=== PATIENT | female | born 1950 | race Caucasian/White ===

== ENCOUNTER 2019-06-22 07:31 | Day surgery (SDC) | payer MEDICARE, BC ==
[~2019-06-22 07:31] MED LIST: Cyanocobalamin (Vitamin B12) 1,000 MCG/ML SDV IM ONE; Dexamethasone 4 MG/ML SDV ONE; Glycopyrrolate 0.2 MG/ML 2 ML SDV IVPUSH ONE; Lactated Ringers 1,000 ML IV ONE; MVI, Adult with Vitamin K 10 ML, Thiamine 200 MG, Chromium/Copper/Mang/Selen/Zn 1 ML in... IV ONE; Midazolam 1 MG/ML 2 ML SDV ONE; Ondansetron 4 MG/2 ML SDV ONE; Propofol 200 MG/20 ML SDV ONE; fentaNYL 100 MCG/2 ML SDV ONE
[2019-06-22] MEDS ORDERED: Propofol 200 MG/20 ML SDV ONE (08:25)
[2019-06-22] MEDS ORDERED: Midazolam 1 MG/ML 2 ML SDV ONE (08:25)
[2019-06-22] MEDS ORDERED: fentaNYL 100 MCG/2 ML SDV ONE (08:25)
[2019-06-22] MEDS ORDERED: Glycopyrrolate 0.2 MG/ML 2 ML SDV IVPUSH ONE (09:00)
[2019-06-22] MEDS ORDERED: Cyanocobalamin (Vitamin B12) 1,000 MCG/ML SDV IM ONE (09:00)
--- NOTE | 2019-07-01 08:01 | OR ---
DATE OF PROCEDURE: 06/22/2019 SURGEON: Yonis Alatorre MD PREOPERATIVE DIAGNOSES: Worsening gastroesophageal reflux symptoms associated with probable slipped laparoscopic adjustable gastric band. POSTOPERATIVE DIAGNOSES: Slipped (10 cm) laparoscopic adjustable gastric band with marked dilation of proximal esophagus above the band and severe esophageal inflammation. OPERATIVE PROCEDURE: Upper GI endoscopy. ANESTHESIA: IV sedation. INDICATION FOR PROCEDURE: This is a 68-year-old status post laparoscopic adjustable gastric band placed in [facility] in [place] in 2006. Over the past few months, she has had progressively worsening problems with severe reflux symptoms, often bringing up undigested food. The patient presents at this time for evaluation of her band endoscopically. Potential risks of the procedure including bleeding and perforation as well as aspiration of esophageal contents were reviewed, and the patient wishes to proceed. DETAILS OF PROCEDURE: The patient was taken to the operating room and placed in a left lateral decubitus position. IV sedation was administered, after which the upper GI endoscope was passed orally through the length of the esophagus and into the stomach with retroflexion view of the fundus, thereafter through the pyloric channel and into the proximal duodenum. Findings included marked dilation of the mid and distal esophagus with retained bilious as well as some old food and fluid within the distal esophagus. This was evacuated initially. The patient was noted to have a quite striking generalized inflammation of the distal esophagus. The imprint of the band was then identified and measured, and noted to be around 10 cm, indicating a significant amount of slippage of the band upward through the band. The outlet of this, however, was widely patent. The esophageal findings would be more in keeping with the picture of esophageal dysmotility one sees frequently with band patients on long-term followup. Within the more distal stomach, retroflexion revealed no evidence of erosion of the band, and remainder of the gastric and duodenal exams were unremarkable. At this point, the scope was then withdrawn and the procedure then concluded. Additional fluid will be removed from the band. We will see the patient back next week to discuss long-term treatment options. She probably will be best suited with removal of the band and conversion to Olesya-en-[id number] gastric bypass, given the esophageal findings, versus repositioning of the band. The latter would actually result in continued problems with esophageal dysmotility and for esophageal emptying. This will all be reviewed with the patient next week and a plan established at that point. Yonis Alatorre MD /[id number]
== END 2019-06-22 11:40 | disposition home or self-care (01) ==
LOC: JP.SDS 07:31
PROVIDERS: ATTEND Surgery
DX: K95.09 Other complications of gastric band procedure (principal); K22.8 Other specified diseases of esophagus; K20.9 Esophagitis, unspecified; I10 Essential (primary) hypertension; K21.9 Gastro-esophageal reflux disease without esophagitis; E87.6 Hypokalemia; Z88.6 Allergy status to analgesic agent
CPT/HCPCS: 43235; J1100; J2250; J2405; J2704; J3010; J3411; J3420; J3490; J7120